=== PATIENT | male | born 1975 | race African-American/Black ===

== ENCOUNTER 2019-08-24 03:38 | Emergency (ER) | payer OTHER ==
[~2019-08-24] VITALS: Ht 177.8 cm; Wt 83.9 kg
[2019-08-24 03:38] VITALS: BP 140/65
[2019-08-24] MEDS ORDERED: CIPR5DRO EACHEYE (04:16)
[2019-08-24] MEDS ORDERED: OLOP5DRO EACHEYE (04:16)
--- NOTE | 2019-08-24 04:17 | PHYS DOC ---
Past History Past Medical History: No Pertinent History Adult General Chief Complaint Chief Complaint: EYE PROBLEMS HPI HPI Patient is a 43-year-old male who presents to the emergency department for evaluation. He states that for the past 24 hours, he has had some redness of his eyes bilaterally, along with some purulent drainage and some clear discharge. He denies any pain, although he states his eyes are irritated and itchy. He did try a new scented cologne on his forehead a few days ago, but it is unclear if this is relating to his symptoms. There are no alleviating or exacerbating factors to his symptoms, he denies any other complaints. Other than some blurred vision due to the tearing in his eyes, he does not have any other vision complaints. Patient denies any welding, or other ocular injury or exposure. Review of Systems Review of Systems Constitutional: Denies fever or chills [] Eyes: No additional information not addressed in HPI[] HENT: Denies nasal congestion or sore throat [] Respiratory: Denies cough or shortness of breath [] Integument: Denies rash or skin lesions [] Neurologic: Denies headache, focal weakness or sensory changes [] Physical Exam Physical Exam PHYSICAL EXAM: CONSTITUTIONAL: Well developed, well nourished HEAD: normocephalic, atraumatic EENT: PERRL, EOMI. Conjunctivae are injected/erythematous bilaterally, there is mild chemosis, sclerae non-icteric; moist mucous membranes. NECK: Supple, non-tender; no meningismus. LUNGS: Lungs CTA, breathing even and unlabored. Normal air movement. HEART: Regular rate and rhythm, no murmur CHEST: No deformity; non-tender ABDOMEN: The abdomen is soft, and non-tender, no masses or bruits. EXTREM: Normal ROM; no deformity, no calf tenderness. Normal pulses palpable in all extremities. There is no pedal edema. SKIN: No rash; no diaphoresis NEURO: Alert; normal speech and cognition; CN's grossly intact; strength grossly intact without focal deficit. BACK: No CVA TTP. EKG EKG [] Radiology/Procedures Radiology/Procedures [] Dragon Disclaimer Dragon Disclaimer This electronic medical record was generated, in whole or in part, using a voice recognition dictation system. Departure Departure: Impression: Primary Impression: Conjunctivitis Disposition: HOME, SELF-CARE Condition: STABLE Referrals: REYES DIA DO Additional Instructions: Follow up with Dr Dia, - skin therapist, for further evaluation. Please call to schedule that appointment. Scripts Ciprofloxacin Hcl (CILOXAN) 5 Ml Drops 1 DROP EACHEYE QID for - for 7 Days, #5 ML Prov: SELIN EMMANUEL MD 08/24/19 Olopatadine Hcl (PATANOL) 5 Ml Drops 1 DROP EACHEYE BID for - for 7 Days, #5 ML 0 Refills Prov: SELIN EMMANUEL MD 08/24/19 SELIN EMMANUEL MD Aug 24, 2019 04:17
== END 2019-08-24 04:15 | disposition home or self-care (01) ==
LOC: ER 03:38
DX: H10.9 Unspecified conjunctivitis (principal)
CPT/HCPCS: 99283

== ENCOUNTER 2019-09-11 06:52 | Emergency (ER) | payer OTHER ==
[~2019-09-11 06:52] MED LIST: CIPR5DRO EACHEYE; OLOP5DRO EACHEYE
--- NOTE | 2019-09-11 07:12 | PHYS DOC ---
Past History Past Medical History: No Pertinent History Past Surgical History: No Surgical History Smoking: Non-smoker Alcohol Use: None Drug Use: None Adult General HPI HPI Patient is a 43-year-old male presents with palpitations and a reported altered mental status. Patient is currently at the [facility]. EMS who brought him in reports he may have taken K2. Patient denies any use of drugs of abuse. He reports that he was having palpitations. Please see started within the past hour, have gone away entirely now. He denies any chest pain. He reports the palpitations lasted less than 10 minutes. There was no discomfort. No change with exertion. No nausea. No diaphoresis. He reports he has had a recent cold which is doing better now. His last use of NyQuil was several days ago. Nonproductive cough is still present but is improving. No fevers.[] Review of Systems Review of Systems Constitutional: Denies fever or chills [] Eyes: Denies change in visual acuity, redness, or eye pain [] HENT: Denies nasal congestion or sore throat [] Respiratory: Denies cough or shortness of breath [] Cardiovascular: No additional information not addressed in HPI [] GI: Denies abdominal pain, nausea, vomiting, bloody stools or diarrhea [] : Denies dysuria or hematuria [] Musculoskeletal: Denies back pain or joint pain [] Integument: Denies rash or skin lesions [] Neurologic: Denies headache, focal weakness or sensory changes [] Endocrine: Denies polyuria or polydipsia [] All other systems were reviewed and found to be within normal limits, except as documented in this note. Allergies Allergies Allergies Coded Allergies Type Severity Reaction Last Updated Verified No Known Drug Allergies 08/24/19 No Physical Exam Physical Exam Constitutional: Well developed, well nourished, no acute distress, non-toxic appearance. [] HENT: Normocephalic, atraumatic, bilateral external ears normal, oropharynx moist, no oral exudates, nose normal. [] Eyes: PERRLA, EOMI, conjunctiva normal, no discharge. [] Neck: Normal range of motion, no tenderness, supple, no stridor. [] Cardiovascular:Heart rate regular rhythm, no murmur [] Lungs & Thorax: Bilateral breath sounds clear to auscultation [] Abdomen: Bowel sounds normal, soft, no tenderness, no masses, no pulsatile masses. [] Skin: Warm, dry, no erythema, no rash. [] Back: No tenderness, no CVA tenderness. [] Extremities: No tenderness, no cyanosis, no clubbing, ROM intact, no edema. [] Neurologic: Alert and oriented X 3, normal motor function, normal sensory function, no focal deficits noted. [] Psychologic: Affect normal, judgement normal, mood normal. [] EKG EKG EKG shows a sinus rhythm at 73 bpm, normal axis, QTC of 384 ms, no ST elevations. Interpreted by me at 0708[] Radiology/Procedures Radiology/Procedures PROCEDURE: CHEST PA & LATERAL PA and lateral chest. HISTORY: Cough, palpitations PA and lateral views were taken of the chest. Lungs are clear. Heart is normal in size. There is no pleural effusion. IMPRESSION: 1. No acute chest disease.[] Course & Med Decision Making Course & Med Decision Making Pertinent Labs and Imaging studies reviewed. (See chart for details) Emergency department course: Patient arrived, was placed in bed, and tolerated exam well. Patient has had no chest pain while in the emergency department. Findings and plan were discussed with the patient. He voiced understanding. All questions were answered. He was discharged in improved condition. Medical decision making: There is no evidence of this being an acute coronary syndrome, no pneumonia, no pneumothorax. This may have been some PVCs versus anxiety. No evidence of common drugs of abuse however multiple drugs do not show up on the standard urine toxicology screen.[] Dragon Disclaimer Dragon Disclaimer This electronic medical record was generated, in whole or in part, using a voice recognition dictation system. Departure Departure: Impression: Primary Impression: Palpitations Disposition: 01 HOME, SELF-CARE Condition: IMPROVED Referrals: PCP,NO (PCP) Patient Instructions: Palpitations Additional Instructions: Follow-up with your regular doctor in 2 days. If you do not have a primary care physician a list of local clinics will be provided for you. Return to the ER if worsening palpitations, difficulty breathing, chest pain, or any other concerns. UNIQUE NARAYANAN DO Sep 11, 2019 07:12
[2019-09-11 07:24] LABS: BASO # 0.1 x10^3/uL (0.0-0.2); BASO % 1 % (0-3); EOS % 0 % (0-3); HEMATOCRIT 41.5 % (39.0-53.0); HEMOGLOBIN 13.4 g/dL (13.0-17.5); LYMPH # 1.9 x10^3/uL (1.0-4.8); LYMPH % 26 % (24-48); MEAN CORPUSCULAR HEMOGLOBIN 30 pg (25-35); MEAN CORPUSCULAR HGB CONC 32 g/dL (31-37); MEAN CORPUSCULAR VOLUME 92 fL (79-100); MONO # 0.9 x10^3/uL (0.0-1.1); MONO % 13 % (0-9); NEUT # 4.2 x10^3uL (1.8-7.7); NEUT % 59 % (31-73); PLATELET COUNT 186 x10^3/uL (140-400); RED CELL DISTRIBUTION WIDTH 14.2 % (11.5-14.5); WHITE BLOOD COUNT 7.1 x10^3/uL (4.0-11.0)
[2019-09-11 07:36] LABS: CALCIUM 8.8 mg/dL (8.5-10.1); CREATININE 1.3 mg/dL (0.7-1.3); GFR 73.6; POTASSIUM 3.6 mmol/L (3.5-5.1)
[2019-09-11 07:48] LABS: ALBUMIN 3.3 g/dL (3.4-5.0); TOTAL PROTEIN 6.7 g/dL (6.4-8.2)
--- NOTE | 2019-09-11 07:55 | RAD ---
PA and lateral chest. HISTORY: Cough, palpitations PA and lateral views were taken of the chest. Lungs are clear. Heart is normal in size. There is no pleural effusion. IMPRESSION: 1. No acute chest disease. Electronically signed by: Blanco Beavers MD (09/11/2019 7:52 AM) [id number]
[2019-09-11 08:27] LABS: BARBITURATES NEG (NEG); BENZODIAZEPINES NEG (NEG); CANNABINOIDS NEG (NEG); COCAINE NEG (NEG); METHADONE NEG (NEG); OPIATES NEG (NEG); PHENCYCLIDINE NEG (NEG)
[2019-09-11 08:35] LABS: AMPHETAMINE/METHAMPHETAMINE NEG (NEG)
[2019-09-11 08:37] LABS: BILIRUBIN,URINE NEG (NEG); CLARITY,URINE CLEAR; COLOR,URINE YELLOW; GLUCOSE,URINE NEG (NEG); NITRITE,URINE NEG (NEG); UROBILINOGEN,URINE 0.2 mg/dL (0.2 mg/dL)
[2019-09-11 08:38] LABS: BACTERIA,URINE 0 /HPF (0-FEW); SQUAMOUS EPITHELIAL CELL,UR OCC /LPF
[2019-09-11 08:45] VITALS: BP 114/73
--- NOTE | 2019-09-11 18:12 | EKG ---
[address] [id number] Test Date: 2019-09-11 Test Time: 07:04:08 Pat Name: JESSE FREEMAN Department: Room: Gender: M Legal Support Specialist: : 1975 Requested By: UNIQUE NARAYANAN Order Number: [id number] Reading MD: Measurements Intervals [place] Rate: 73 P: 48 [place]: 194 QRS: 4 QRSD: 72 T: 7 QT: 346 QTc: 384 Interpretive Statements SINUS RHYTHM R-S TRANSITION ZONE IN V LEADS DISPLACED TO THE LEFT OTHERWISE NORMAL ECG RI6.01 No previous ECG available for comparison
== END 2019-09-11 08:45 | disposition home or self-care (01) ==
LOC: ER 06:52
DX: R00.2 Palpitations (principal); R41.82 Altered mental status, unspecified
CPT/HCPCS: 36415; 71046; 80053; 80307; 81001; 83735; 83880; 84443; 84484; 85025; 87086; 93005; 99285